=== PATIENT | female | born 2000 | race Caucasian/White ===

== ENCOUNTER 2018-09-02 10:12 | Day surgery (SDC) | payer BC ==
[2018-09-01 16:09] VITALS: BMI 20.6
[2018-09-02] VITALS (16 sets, daily range): BP systolic 114–138; BP diastolic 56–86; PULSE 80–114; RESP 12–22; Ht 172.7 cm; Wt 58.7 kg
[~2018-09-02] VITALS: Ht 172.7 cm; Wt 58.7 kg
--- NOTE | 2018-09-02 07:41 | SIPON ---
Date/Time of Note Date/Time of Note DATE: 09/02/18 TIME: 07:40 Operative Report Preoperative Diagnosis knee cyst Postoperative Diagnosis same Operation/Procedure Performed resection Surgeon see signature line care management assistant na Anesthesia: general Estimated blood loss: minimal Transfusion Required none Specimen cyst to pathol Grafts/Implants none Complications none NANCY DUBON MD Sep 02, 2018 07:41
[~2018-09-02 10:12] MED LIST: CEFAZOLIN 1 GM/50 ML (PMX) 50 ML IVPB SCH; LACTATED RINGER'S 1,000 ML (ENTER RATE) IV SCH
--- NOTE | 2018-09-02 13:25 | PREAC ---
Date/Time of Note Date/Time of Note DATE: 09/02/18 TIME: 13:24 Anesthesia Eval and Record Evaluation Time Pre-Procedure Interview DATE: 09/02/18 TIME: 13:24 Age 17 Sex female NPO: 8 hrs Preoperative diagnosis Left knee ganglion cyst Planned procedure Left knee arthroscopy, ganglion cystectomy Past Medical History Past Medical History: None Surgery & Anesthesia Issues No known issue Meds Anticoagulation: No Beta Malcolm within 24 hr: No Reason Beta Malcolm not given: Pt. not on B-Malcolm No Active Prescriptions or Reported Meds Current Medications Lactated Ringer's 1,000 ml @ 110 mls/hr Q9H6M IV ; Start 09/02/18 at 06:00; Stop 09/02/18 at 17:00 Cefazolin Sodium 50 ml @ 100 mls/hr PREOP IVPB ; Start 09/02/18 at 06:00; Stop 09/02/18 at 17:00 Meds reviewed: Yes Allergies Coded Allergies: No Known Allergy (Unverified , 09/02/18) Allergies Reviewed: Yes Labs/Studies Labs Reviewed: Reviewed by anesthesiologist test: Negative Pre-procedure Exam Last vitals Vital Signs Date Temp Pulse Resp B/P (MAP) Pulse Ox O2 O2 Flow FiO2 Time Delivery Rate 09/02/18 98.4 93 16 138/86 99 Room Air 11:09 (103) Airway: Adequate mouth opening Mallampati: Mallampati I Teeth: Normal Lung: Normal Heart: Normal ASA Physical Status ASA physical status: 1 Emergency: None Planned Anesthetic General/MAC: LMA Planned Pain Management Parenteral pain med Pre-operative Attestations Prior to commencing anesthesia and surgery, the patient was re-evaluated, there was verification of: *The patient's identity *The results of appropriate recent lab work and preoperative vital signs *The above evaluation not changing prior to induction *Anesthetic plan, risk benefits, alternative and complications discussed with patient/family; questions answered; patient/family understands, accepts and wishes to proceed. GENIA VALENZUELA MD Sep 02, 2018 13:25
[2018-09-02] MEDS ORDERED: LIDOCAINE 2% (SDV) 5 ML INJ ONE (13:40)
[2018-09-02] MEDS ORDERED: MEPERIDINE 100 MG INJ ONE (13:40)
[2018-09-02] MEDS ORDERED: PROPOFOL 20 ML ONE (13:40)
[2018-09-02] MEDS ORDERED: CEFAZOLIN 1 GM INJ ONE ×2 (13:40→14:13)
[2018-09-02] MEDS ORDERED: LIDOCAINE 1%/EPI 30 ML INJ ONE (13:44)
[2018-09-02] MEDS ORDERED: EPINEPHrine 1 MG/ML 30 ML INJ ONE (13:48)
[2018-09-02] MEDS ORDERED: METOCLOPRAMIDE 10 MG INJ ONE (14:13)
[2018-09-02] MEDS ORDERED: ONDANSETRON 4 MG INJ ONE (14:13)
[2018-09-02] MEDS ORDERED: METOCLOPRAMIDE 10 MG INJ IV PRN (15:30)
[2018-09-02] MEDS ORDERED: MIDAZOLAM 1 MG/ML 2 ML INJ IV PRN (15:30)
[2018-09-02] MEDS ORDERED: MEPERIDINE 25 MG INJ IV PRN (15:30)
[2018-09-02] MEDS ORDERED: HYDROmorphONE 1 MG/5 ML IV SYRINGE IV PRN ×3 (15:30)
[2018-09-02] MEDS ORDERED: FENTAnyl 50 MCG/ML VIAL IV PRN ×3 (15:30)
[2018-09-02] MEDS ORDERED: DIPHENHYDRAMINE 50 MG INJ IV PRN (15:30)
[2018-09-02] MEDS ORDERED: OXYCODONE/ACETAMINOPHEN (5/325) TAB PO PRN ×2 (15:30)
[2018-09-02] MEDS ORDERED: ONDANSETRON 4 MG INJ IV PRN (15:30)
--- NOTE | 2018-09-02 16:52 | PAC ---
Date/Time of Note Date/Time of Note DATE: 09/02/18 TIME: 16:52 Post-Anesthesia Notes Post-Anesthesia Note Last documented vital signs Vital Signs Date Temp Pulse Resp B/P (MAP) Pulse Ox O2 O2 Flow FiO2 Time Delivery Rate 09/02/18 Simple 8.0 16:26 Mask 09/02/18 86 20 135/61 98 16:10 (85) 09/02/18 98.0 15:31 Activity: WNL Respiratory function: WNL Cardiovascular function: WNL Mental status: Baseline Pain reasonably controlled: Yes Hydration appropriate: Yes Nausea/Vomiting absent: Yes Comments BT: 98.4 GENIA VALENZUELA MD Sep 02, 2018 16:52
--- NOTE | 2018-09-02 21:22 | OPR ---
DATE OF OPERATION: 09/02/2018 PREOPERATIVE DIAGNOSIS: Left knee ganglion cyst, symptomatic. POSTOPERATIVE DIAGNOSIS: Left knee ganglion cyst, symptomatic. OPERATIVE PROCEDURES: 1. Open resection, left knee ganglion cyst, CPT 72302. 1. Diagnostic arthroscopy, left knee CPT 62956. 2. Cosmetic and layered closure approximately 3 cm, CPT 31330. ATTENDING SURGEON: Jamil Downey MD ANESTHESIA: General. TOURNIQUET TIME: 39 minutes. ESTIMATED BLOOD LOSS: Minimal. COMPLICATIONS: None. SPECIMEN: Mass sent to pathology. GENERAL: All counts were correct whenever tested. A surgical timeout was performed after anesthesia but before surgery it was unremarkable. OPERATIVE INDICATIONS: The patient is a 17-year-old young woman who presented for consultation of le ft knee mass. She complained of pain. Examination was consistent with ganglion cyst. I believe MRI confirmed the diagnosis. I explained the treatment is symptomatic. If her pain is well controlled, I recommend no intervention. If she has only mild pain, I recommend symptomatic treatment including anti-inflammatory medications and ice. If this results in insufficient improvement, aspiration woul d be recommended and if that results in insufficient improvement, resection would be recommended. Ul timately, she underwent resection and had relief, but the cyst recurred and she requests definitive t reatment. This would consist of open resection. Because of concern for internal derangement or meni scal pathology causing the cyst, I recommended diagnostic arthroscopy as well. I explained the risks , benefits and alternatives of various methods of treatment in detail. The details of this conversat ion are available on the office chart. All questions were answered. The patient wished to proceed. OPERATIVE PROCEDURE: The patient was identified by name and by identification bracelet in the preope rative holding area. The appropriate site was identified and marked. She was given appropriate preo perative IV antibiotics and brought to the operating room. General anesthesia was performed without complication. I marked the cyst and the incision for the cyst as well as the incisions for diagnosti c arthroscopy with the rest of the surface anatomy. A tourniquet was applied, but not yet inflated. The extremity was prepped and draped in the usual sterile fashion. After surgical timeout, the tourniquet was inflated. I made an approximately 3 cm longitudinal incis ion centered over the cyst. I came down sharply into the skin, just into the subcutaneous tissue. W ith this, a drop of champagne-colored jelly came out, which obviously came from the cyst. I identifi ed the cyst at that time and held it with an Allis clamp. I continued to dissect bluntly with a hemo stat and sharply with scissors around the circumference of the cyst. The cyst was largely fully infl ated except for the drop described above throughout the operation. I continued to trace the cyst bryant n to the retinaculum. The cyst was exposed and dissected free, circumferentially, coming down to the retinaculum. I resected about 5 to 10 mm diameter of retinaculum to minimize the risk of recurrence . This was a relatively superior in the knee, at the level of the patella, and not at all close to t he meniscus. This was sent for final pathology. The incision was irrigated copiously. I made a standard anterolateral portal incision through the previous incision and brought in the arth roscopic sheath and trocar. I came up to the patellofemoral pouch and switched in the arthroscope. No fluid leakage occurred. I began in the patellofemoral pouch and then came medially to the medial gutter, medial joint, notch, lateral joint, lateral gutter, and back up to the patellofemoral pouch. I came down over the trochlea. I spent a significant amount of time in the lateral compartment. No abnormality at all was seen. No abnormality anywhere around the meniscus or anywhere in the lateral compartment was noted. The knee was irrigated and drained and the instrumentation withdrawn. The incision was closed in layers, culminating in 3-0 nylon for a subcuticular cosmetic closure. The incision was dressed and the tourniquet let down at 39 minutes. The foot was warm, pink, and had ex cellent capillary refill. A knee immobilizer was applied. She is to wear this interactive multimedia designer. She will follow up with me in one week for reexamination. Dictated By: JAMIL PARKER/RICKI Conf#: [id number] DID#: [id number]
== END 2018-09-02 18:18 | disposition home or self-care (01) ==
LOC: SDS 10:12
PROVIDERS: ATTEND Orthopaedic Surgery
DX: M67.462 Ganglion, left knee (principal)
CPT/HCPCS: 27328; 29870; 84703; 88304; J0171; J0690; J2175; J2405; J2765; J3010